=== PATIENT | male | born 1985 | race Caucasian/White ===

== ENCOUNTER 2019-03-21 15:20 | Day surgery (SDC) | payer OTHER ==
[2019-03-21] VITALS (8 sets, daily range): BP systolic 114–144; BP diastolic 59–74; PULSE 50–66; RESP 16–51; Ht 165.1 cm; Wt 72.5 kg
[~2019-03-21] VITALS: Ht 165.1 cm; Wt 72.5 kg
--- NOTE | 2019-03-21 16:17 | HPN ---
Date/Time of Note Date/Time of Note DATE: 03/21/19 TIME: 16:17 Interval H&P Admission Note Pt. seen H&P reviewed: No system changes MIGUEL ÁNGEL KAY Mar 21, 2019 16:17
[2019-03-21] MEDS ORDERED: LACTATED RINGER'S 1,000 ML IV SCH (16:30)
--- NOTE | 2019-03-21 17:56 | PREAC ---
Date/Time of Note Date/Time of Note DATE: 03/21/19 TIME: 17:55 Anesthesia Eval and Record Evaluation Time Pre-Procedure Interview DATE: 03/21/19 TIME: 17:55 Age 34 Sex male NPO: 8 hrs Preoperative diagnosis left hand foreign body at the first webspace and ulnar thumb metacarpal Planned procedure removal of left hand foreign body at the first webspace and ulnar thumb metacarpal Past Medical History Past Medical History: None Surgery & Anesthesia Issues No known issue Meds Anticoagulation: No Beta Ramiro within 24 hr: No Reason Beta Ramiro not given: Pt. not on B-Ramiro Current Medications Lactated Ringer's 1,000 ml @ 0 mls/hr Q0M IV ; Start 03/21/19 at 16:30 Meds reviewed: Yes Allergies Coded Allergies: No Known Allergy (Unverified , 03/21/19) Allergies Reviewed: Yes Labs/Studies Labs Reviewed: Reviewed by anesthesiologist test: N/A Pre-procedure Exam Last vitals Vital Signs Date Temp Pulse Resp B/P (MAP) Pulse Ox O2 O2 Flow FiO2 Time Delivery Rate 03/21/19 98.6 56 18 114/69 98 Room Air 16:09 (84) Airway: Adequate mouth opening, Adequate thyromental dist Mallampati: Mallampati II Teeth: Normal Lung: Normal Heart: Normal ASA Physical Status ASA physical status: 2 Emergency: None Planned Anesthetic General/MAC: LMA Planned Pain Management Parenteral pain med, Local by surgeon Pre-operative Attestations Prior to commencing anesthesia and surgery, the patient was re-evaluated, there was verification of: *The patient's identity *The results of appropriate recent lab work and preoperative vital signs *The above evaluation not changing prior to induction *Anesthetic plan, risk benefits, alternative and complications discussed with patient/family; questions answered; patient/family understands, accepts and wishes to proceed. MARIO ABAD MD Mar 21, 2019 17:56
[2019-03-21] MEDS ORDERED: MIDAZOLAM 1 MG/ML 2 ML INJ ONE (18:11)
[2019-03-21] MEDS ORDERED: LIDOCAINE 2% (SDV) 5 ML INJ ONE (18:11)
[2019-03-21] MEDS ORDERED: PROPOFOL 20 ML ONE (18:11)
[2019-03-21] MEDS ORDERED: FENTAnyl 50 MCG/ML VIAL ONE (18:11)
[2019-03-21] MEDS ORDERED: LIDOCAINE 1% (MPF) 30 ML INJ ONE (18:14)
[2019-03-21] MEDS ORDERED: BUPIVACAINE 0.5% (SDV) 30 ML INJ ONE (18:14)
[2019-03-21] MEDS ORDERED: MEPERIDINE 25 MG INJ IV PRN (18:30)
[2019-03-21] MEDS ORDERED: HYDROmorphONE 1 MG/5 ML IV SYRINGE IV PRN ×3 (18:30)
[2019-03-21] MEDS ORDERED: DIPHENHYDRAMINE 50 MG INJ IV PRN (18:30)
[2019-03-21] MEDS ORDERED: PROCHLORPERAZINE 10 MG INJ IV PRN (18:30)
[2019-03-21] MEDS ORDERED: ONDANSETRON 4 MG INJ IV PRN (18:30)
[2019-03-21] MEDS ORDERED: OXYCODONE/ACETAMINOPHEN (5/325) TAB PO PRN (18:30)
[2019-03-21] MEDS ORDERED: FENTAnyl 50 MCG/ML VIAL IV PRN (18:30)
[2019-03-21] MEDS ORDERED: EPHEDrine 25 MG/5 ML SYG ONE (18:46)
--- NOTE | 2019-03-21 18:47 | OPPN ---
Date/Time of Note Date/Time of Note DATE: 03/21/19 TIME: 18:46 Operative Report Preoperative Diagnosis left hand foreign body, deep Postoperative Diagnosis left hand foreign body, deep Operation/Procedure Performed removal of left hand foreign body, deep Surgeon see signature line therapist's assistant none Anesthesia: MAC Estimated blood loss: 0 - 10 ml's Transfusion Required none Specimen metallic foreign body Grafts/Implants none Complications none MIGUEL ÁNGEL KAY Mar 21, 2019 18:47
[2019-03-21] MEDS ORDERED: BUPIVACAINE 0.5% (MPF) 30 ML INJ INJ ONE (18:56)
--- NOTE | 2019-03-21 18:56 | PAC ---
Date/Time of Note Date/Time of Note DATE: 03/21/19 TIME: 18:55 Post-Anesthesia Notes Post-Anesthesia Note Last documented vital signs Vital Signs Date Temp Pulse Resp B/P (MAP) Pulse Ox O2 O2 Flow FiO2 Time Delivery Rate 03/21/19 98.6 56 18 114/69 98 Room Air 16:09 (84) Activity: WNL Respiratory function: WNL Cardiovascular function: Other (bradycardic and asymptomatic at baseline) Mental status: Baseline Pain reasonably controlled: Yes Hydration appropriate: Yes Nausea/Vomiting absent: Yes Comments BP: 139/60 HR: 52 RR: 15 T: 98 SaO2: 99% MARIO ABAD MD Mar 21, 2019 18:56
--- NOTE | 2019-03-22 03:51 | OPR ---
DATE OF OPERATION: 03/21/2019 SURGEON: Raúl Hogue MD ANESTHESIA: Local MAC. PREOPERATIVE DIAGNOSIS: Left hand deep foreign body at the first webspace and thumb metacarpal. POSTOPERATIVE DIAGNOSIS: Left hand deep foreign body at the first webspace and thumb metacarpal. PROCEDURE: Removal of deep left hand foreign body at the first webspace and ulnar thumb metacarpal. OPERATIVE FINDINGS: Deep buried metallic foreign body within the tendon and musculature, left hand 1st webspace. INDICATION FOR PROCEDURE: A 34-year-old male with injury to the left hand who had a retained foreign body. We discussed the options and the patient elected to proceed with surgical intervention, understanding the risks and benefits. DESCRIPTION OF PROCEDURE: The patient was seen in the preoperative area. All further questions were answered. Again, he gave informed consent, understanding the risks and benefits. He was taken to operative suite and placed in supine position. Ancef 2 grams IV given, and tourniquet placed in the left upper extremity. Left upper extremity was prepped with ChloraPrep stick and draped in usual sterile fashion. Esmarch bandage was used to exsanguinate the extremity and tourniquet inflated to 250 mmHg. A 10 mL volume of 0.5% Marcaine was injected at the base of the left thumb and first webspace for local anesthesia. After adequate anesthesia, a 2 cm incision was utilized at the first webspace with sharp dissection carried down through skin and subcutaneous tissue. Tenotomy scissor divided the soft tissues within the first webspace into the first webspace musculature and tendons. The metallic foreign body was identified within the deep first webspace and was removed using an Adson forceps. The wound was copiously irrigated. Skin closed with 4-0 nylon. X-ray imaging showed interval removal of the metallic foreign body. Xeroform placed over the wound followed by sterile gauze, Webril and a bias bandage. Tourniquet deflated after 6 minutes. The patient was awakened from anesthesia. He was taken to the postoperative suite in stable condition, tolerating procedure well without complication. SPECIMENS: Left hand foreign body. ESTIMATED BLOOD LOSS: 5 mL. COUNTS: Sponge, instrument, needle counts correct. TOURNIQUET TIME: 6 minutes. CONDITION ON DISCHARGE: Stable. The patient was given a nonrefillable 5-day prescription for pain medication for surgery today. Dictated By: RAÚL KEYS/HUY Conf#: [id number] DID#: [id number] MTDD
== END 2019-03-21 20:00 | disposition home or self-care (01) ==
LOC: SDS 15:20
PROVIDERS: ATTEND Orthopaedic Surgery Hand Surgery
DX: S61.042A Puncture wound with foreign body of left thumb without damage to nail, initial encounter (principal); W29.4XXA Contact with nail gun, initial encounter; Y93.89 Activity, other specified; Y92.89 Other specified places as the place of occurrence of the external cause; Y99.8 Other external cause status
CPT/HCPCS: 20525; 73130; J2250; J3010; Z7512; Z7610; 88300